=== PATIENT | female | born 1975 | race Caucasian/White ===

== ENCOUNTER → 2017-09-22 | Outpatient (CLI) | payer BC | END | disposition home or self-care (01) | LOC: KCIC CT 11:53 | DX: J32.9 Chronic sinusitis, unspecified (principal); J34.2 Deviated nasal septum | CPT/HCPCS: 70486 ==

== ENCOUNTER → 2017-10-03 | Outpatient (CLI) | payer BC | END | disposition home or self-care (01) | LOC: KCIC MAMMO 13:46 | DX: Z12.31 Encounter for screening mammogram for malignant neoplasm of breast (principal) | CPT/HCPCS: 77067 ==

== ENCOUNTER → 2019-06-21 | Outpatient (CLI) | payer BC ==
--- NOTE | 2019-06-22 08:10 | KCIC ---
BILATERAL SCREENING MAMMOGRAM, 3-D History: Routine screening. Comparison: Bilateral mammogram October 03, 2017. Technique: MLO and CC digital tomosynthesis (3D) images obtained. Radiologist reviewed these images on dedicated workstation. Findings: Breast Tissue Density B : There are scattered areas of fibroglandular density. There is a new nodular asymmetry in the left breast 4:00-5:00 B position. There are no dominant masses, suspicious microcalcifications, or architectural distortion. IMPRESSION: New nodular asymmetry in the lower outer left breast. Recommend further evaluation with ultrasound. BI-RADS Category 0: Incomplete: Need additional imaging evaluation. The images were reviewed with computer-aided detection. Patient information is entered into reminder system with a target due date for the next screening mammogram. Mammography is the most sensitive method for finding small breast cancers, but it does not detect them all and is not a substitute for careful clinical examination. A negative mammogram does not negate a clinically suspicious finding and should not result in delay in biopsying a clinically suspicious abnormality. "Our facility is accredited by the [employer] Mammography [employer]." Electronically signed by: Gurinder Powers MD (06/22/2019 8:07 AM) [email or web address]
== END | disposition home or self-care (01) ==
LOC: KCIC MAMMO 11:13
PROVIDERS: ATTEND Obstetrics & Gynecology
DX: Z12.31 Encounter for screening mammogram for malignant neoplasm of breast (principal); N64.89 Other specified disorders of breast
CPT/HCPCS: 77063; 77067

== ENCOUNTER → 2019-07-05 | Outpatient (CLI) | payer BC ==
--- NOTE | 2019-07-05 13:33 | KCIC ---
Left breast ultrasound: Reason for examination: New nodule on screening mammogram. Comparison is made to mammographic exam dated 06/21/2019. Ultrasound examination of the left breast was performed with attention to the area of mammographic concern and the left axilla. At the 4:00 position 4.5 cm from the nipple, there is a hypoechoic irregularly marginated nodule present measuring 1.2 cm in greatest dimension which would correspond to the area of mammographic concern. Malignant process cannot be excluded and further evaluation with ultrasound-guided biopsy is recommended. No abnormal appearing lymph nodes are seen in the axilla. IMPRESSION: 1.2 cm nodule with irregular margination at the 4:00 position 4.5 cm from the nipple which would correspond with the area of mammographic concern. Recommend ultrasound-guided biopsy. BI-RADS Category 4: Suspicious. These findings have been discussed with the patient and Dr. Stovall's nurse, Ezra, was notified about these findings on 07/05/2019 at 1325. "Our facility is accredited by the [employer] Mammography Program." This patient's information has been entered into a reminder system for the patient to be notified with the results of her examination and a target date for the next mammogram. Electronically signed by: Catarina Carvalho MD (07/05/2019 1:30 PM) [email or web address]
== END | disposition home or self-care (01) ==
LOC: KCIC US 12:56
PROVIDERS: ATTEND Obstetrics & Gynecology
DX: N63.23 Unspecified lump in the left breast, lower outer quadrant (principal); R92.8 Other abnormal and inconclusive findings on diagnostic imaging of breast
CPT/HCPCS: 76641

== ENCOUNTER → 2019-07-16 | Outpatient (CLI) | payer BC ==
--- NOTE | 2019-07-16 12:31 | RAD ---
ULTRASOUND-GUIDED CORE BIOPSY OF THE LEFT BREAST Indications: 12 mm solid nodule of the 4:00 position of the left breast 4.5 cm from the nipple. Procedure: Sonography of the left breast was performed which demonstrates the aforementioned nodule. An appropriate skin ondina was made on the left breast. The procedure and possible complications including bleeding and infection were explained. The patient provided both verbal and written consent. <...> A timeout was performed which confirmed the name of the patient and date of and the type of procedure and the side of the procedure. Allergies to medications were reviewed. No allergies to lidocaine. Physician's order was confirmed. The patient's questions were answered. The left breast was prepped and draped in the usual sterile fashion. A total of 8 cc of 1% lidocaine was utilized for local anesthesia. Using sterile technique and ultrasound guidance, a small skin neck was made and a 13-gauge Bard needle cannula was directed to the edge of the nodule. A total of 4 14-gauge core biopsies were obtained coaxially through the needle cannula using ultrasound guidance. Note-a total of 5 passes were made but the second pass did not relinquish an adequate core sample. Sonographic spot images were obtained. Following this, a breast biopsy marker clip was placed coaxially along the edge of the nodule using ultrasound guidance. A sonographic spot image demonstrates the biopsy clip adjacent to the nodule. Manual pressure was applied for 5 minutes and hemostasis was deemed adequate. Sterile Band-Aid was applied to the biopsy site. The patient tolerated the procedure well without complication. The biopsy samples were placed into formalin and sent to pathology for further evaluation. Follow-up will be with the patient's referring physician. IMPRESSION: Ultrasound-guided core biopsy sampling of the nodule of the left breast was performed without complication. Pathology results pending. Note-6 month follow-up mammogram and sonogram of the left breast should be performed if the biopsy results are negative for malignancy since the nodule was more difficult to visualize sonographically after lidocaine infiltration. DIAGNOSTIC LEFT-SIDED MAMMOGRAPHY FINDINGS: 2-D digital mammography of the left breast was performed in the CC and MLO projections. A biopsy clip is seen at the 4:00 position of the left breast which is in the region of the nodular density seen previously although the nodule is obscured by the lidocaine infiltration in today's mammogram. IMPRESSION: The biopsy clip is located at the 4:00 position of the left breast in the region of the nodule seen on the previous mammogram. However, the nodule is not seen by mammography today since it is obscured by the lidocaine infiltration.
--- NOTE | 2019-07-20 18:06 | PATHOLOGY ---
[facility] Accession Number: [id number] . 01 Material submitted: . breast - LEFT BREAST MASS. Modifiers: left . 01 Clinical history: . Left breast mass . 02 Diagnosis: Breast tissue, left breast mass needle biopsies: - Fibrocystic changes, focal, with components of stromal fibrosis, mild duct ectasia, cystic change, and focal apocrine metaplasia. ([facility] 07/19/2019) [facility] 07/20/2019 1736 Local . 02 Comment: There is no evidence of malignancy. ([facility] 07/19/2019) . 02 Electronically signed: . Lázaro Meza MD, Pathologist NPI- [id number] . 01 Gross description: . The specimen is received in formalin, labeled "Leigh Tovar, left breast". Received are multiple needle cores of fibrofatty tissue measuring 2.1 x 0.9 x 0.2 cm in aggregate dimensions. The specimen is submitted entirely in cassettes A1 through A3. The cold ischemic time is 11 minutes. The total formalin fixation time is 10 hours and 1 minute. ([facility]; 07/16/2019) [facility]/QA 07/16/2019 1558 Local . 02 Pathologist provided ICD-10: N60.12, N60.32, N60.42, N60.82 . 02 CPT . 233034 Specimen Comment: A courtesy copy of this report has been sent to [phone], [phone] Specimen Comment: [phone], Specimen Comment: Report sent to ,DR DAN / DR SANTIAGO Performed at: [address], [place], [place] [id number] MD Gm Jang MD Phone: [phone] Performed at: [address] [id number] MD Lázaro Meza MD Phone: [phone]
== END ==
LOC: US 15:24
PROVIDERS: ATTEND Obstetrics & Gynecology
DX: N63.20 Unspecified lump in the left breast, unspecified quadrant (principal); N60.12 Diffuse cystic mastopathy of left breast
CPT/HCPCS: 19083; 77065; 88305; C1713; 19081; 76942

== ENCOUNTER → 2020-11-13 | Outpatient (CLI) | payer BC ==
--- NOTE | 2020-11-13 13:08 | KCIC ---
Bilateral digital screening mammograms with 3-D tomosynthesis: Reason for examination: Routine screening. Comparison is made to previous studies dated back to 10/03/2017. Bilateral mammograms in CC and oblique projections were obtained with 2-D imaging and 3-D tomosynthes is imaging on a Siemens Inspiration unit and reviewed on the workstation. Interpretation was made wit h the benefit of CAD. The skin and nipples show no abnormalities. No abnormal axillary lymph nodes are seen. The breast par enchyma shows scattered fatty and fibroglandular density. (Breast density: Category B.) There are pos tbiopsy changes present at the 3:00 B position of the left breast. There does appear to be new nodula r parenchymal density at the retroareolar 12:00 B position of the left breast. Further evaluation wit h ultrasound is recommended. Impression: Nodular parenchymal asymmetry in the retroareolar 12:00 B position of the left breast. Recommend furt her evaluation with ultrasound. BI-RAD Category 0: Incomplete. Needs additional imaging evaluation.. "Our facility is accredited by the [employer] Mammography Program." This patient's information has been entered into a reminder system for the patient to be notified wit h the results of her examination and a target date for the next mammogram. Electronically signed by: Catarina Carvalho MD (11/13/2020 1:06 PM) [email or web address]
== END ==
LOC: KCIC MAMMO 10:35
PROVIDERS: ATTEND Obstetrics & Gynecology
DX: Z12.31 Encounter for screening mammogram for malignant neoplasm of breast (principal); N64.89 Other specified disorders of breast
CPT/HCPCS: 77063; 77067

== ENCOUNTER → 2020-11-22 | Outpatient (CLI) | payer BC ==
--- NOTE | 2020-11-22 13:57 | KCIC ---
EXAM: Left breast sonogram. HISTORY: 45-year-old female presents for evaluation of nodularity within the left breast demonstrated on a mammogram dated 11/13/2020. TECHNIQUE: Sonographic imaging of the left breast targeted to the site of mammographic nodularity was performed. COMPARISON: Mammograms dated 11/13/2020 and 07/16/2019. FINDINGS: There is no suspicious finding within the left breast at the site of mammographic nodularit y. There is a 5 mm benign cyst at the 12:00 position 2 cm from the nipple. There are benign axillary lymph nodes. IMPRESSION: 1. No suspicious sonographic correlate for nodularity within the left breast demonstrated on the prio r mammogram. This is retrospectively similar compared to a mammogram dated 07/16/2019. This favors dayton ignity. 2. Small simple cyst at the 12:00 position. 3. BI-RADS Category 2: Benign finding(s). Annual mammography is recommended. Electronically signed by: Michaelle Robert MD (11/22/2020 1:55 PM) [email or web address]
== END ==
LOC: KCIC US 13:07
PROVIDERS: ATTEND Obstetrics & Gynecology
DX: N60.02 Solitary cyst of left breast (principal)
CPT/HCPCS: 76641

== ENCOUNTER → 2021-02-07 | Outpatient (CLI) | payer BC ==
[~2021-02-07] VITALS: Ht 167.6 cm; Wt 96.6 kg
[~2021-02-07] MED LIST: NORMAL SALINE IV ONE; SINCALIDE IV ONE
--- NOTE | 2021-02-07 10:08 | RAD ---
HEPATOBILIARY SCAN WITH EJECTION FRACTION 02/07/2021 10:05 AM History: Reason: RUQ PAIN / Spl. Instructions: / History: Procedure: Serial static images are obtained of the liver and biliary system in the frontal projectio n following IV administration of 5.5 mCi of Technetium 99m Choletec. After filling of the gallbladd er, 1.93 mcg of sincalide were infused over 30 minutes and dynamic imaging continued over this period . The gallbladder ejection fraction was calculated. Findings: There is prompt hepatic clearance of tracer from the blood pool. There is homogeneous distr ibution throughout the liver. The gallbladder ejection fraction measures 57% (normal gallbladder EF is 35% or greater). IMPRESSION: 1. The cystic duct and common bile duct are patent. Negative for acute cholecystitis. 2. The gallbladder ejection fraction is normal Electronically signed by: Agus Laura MD (02/07/2021 10:05 AM) [id number]
== END ==
LOC: NM 10:18
PROVIDERS: ATTEND Internal Medicine
DX: R10.11 Right upper quadrant pain (principal)
CPT/HCPCS: 78227; A9537; J2805

== ENCOUNTER → 2021-12-17 | Outpatient (CLI) | payer BC ==
--- NOTE | 2021-12-17 12:51 | KCIC ---
Bilateral digital screening mammograms with 3-D tomosynthesis: Reason for examination: Routine screening. Comparison is made to previous studies dated back to 10/03/2017. Bilateral mammograms in CC and oblique projections were obtained with 2-D imaging and 3-D tomosynthes is imaging on a Siemens Inspiration unit and reviewed on the workstation. Interpretation was made wit h the benefit of CAD. The skin and nipples show no abnormalities. No abnormal axillary lymph nodes are seen. The breast par enchyma is heterogeneously dense. (Breast density: Category C.) There is a small nodule at the 12:00 position of the left breast 5 cm from the nipple measuring approximately 5.5 mm in greatest dimension . Further evaluation with ultrasound is recommended. There are no other dominant masses, suspicious c alcifications or architectural distortion. Impression: 5.5 mm nodule in the left breast at the 12:00 position 5 cm from the nipple. Recommend further evalua tion with ultrasound. Your patient's mammogram demonstrates that she has dense breast tissue (breast density category C or D), which could hide abnormalities, and if she has other risk factors for breast cancer that have bee n identified, she might benefit from supplemental screening tests that may be suggested by you as her ordering physician. Dense breast tissue, in and of itself, is a relatively common condition. Therefo re, this information is not provided to cause undue concern, but rather to raise your awareness and t o promote discussion with your patient regarding the presence of other risk factors, in addition to d ense breast tissue. Your patient's mammography results will be sent to her. BI-RAD Category 0: Incomplete. Recommend additional imaging evaluation. "Our facility is accredited by the [employer] Mammography Program." This patient's information has been entered into a reminder system for the patient to be notified wit h the results of her examination and a target date for the next mammogram. Electronically signed by: Catarina Carvalho MD (12/17/2021 12:49 PM) [email or web address]
== END ==
LOC: KCIC MAMMO 10:08
PROVIDERS: ATTEND Obstetrics & Gynecology
DX: Z12.31 Encounter for screening mammogram for malignant neoplasm of breast (principal)
CPT/HCPCS: 77063; 77067

== ENCOUNTER → 2022-01-01 | Outpatient (CLI) | payer BC ==
--- NOTE | 2022-01-01 13:10 | KCIC ---
EXAM: Left breast sonogram. HISTORY: 46-year-old female presents for evaluation of nodularity within the left breast demonstrated on a screening mammogram dated 12/17/2021. TECHNIQUE: Sonographic imaging of the left breast including all 4 quadrants and the retroareolar was performed. COMPARISON: 12/17/2021. FINDINGS: There is a 6 mm circumscribed anechoic lesion with a few internal echogenic foci at the 12: 00 position 3.5 cm the nipple, the appearance of which favors a cyst with internal debris. There is n o solid lesion component. There is no suspicious blood flow or posterior shadowing. This corresponds with the mammographic finding of concern. There is no suspicious sonographic finding. IMPRESSION: 1. 6 mm benign cyst at the 12:00 position 3.5 cm from the nipple, corresponding with the mammographic finding of concern. 2. No suspicious sonographic finding. 3. BI-RADS Category 2: Benign finding(s). Annual mammography is recommended. Electronically signed by: Michaelle Robert MD (01/01/2022 1:08 PM) [email or web address]
== END ==
LOC: KCIC US 12:49
PROVIDERS: ATTEND Obstetrics & Gynecology
DX: Z09 Encounter for follow-up examination after completed treatment for conditions other than malignant neoplasm (principal); N60.02 Solitary cyst of left breast; N63.20 Unspecified lump in the left breast, unspecified quadrant
CPT/HCPCS: 76641